=== PATIENT | female | born 1955 | race Caucasian/White ===

== ENCOUNTER 2017-02-12 21:13 | Emergency (ER) | payer OTHER ==
[~2017-02-12] VITALS: Ht 165.1 cm; Wt 113.4 kg
[~2017-02-12 21:13] MED LIST: ALLOPURINOL 30300 M2 PO; BAYER CHEWABLE81 MG PO; BRILINTA90 MG PO; CALCIUM500 MG PO; CARDIZEM CD240 MG PO; CO Q-1010 MG PO; FISH OIL 1,001000 M2 PO; LEVOTHYROXIN0.075 MG PO; LEVOTHYROXIN0.088 MG PO; LIPITOR 20 MG T20 M1 PO; LOPRESSOR25 PO; MICARDIS 80 MG80 MG PO; NEXIUM40 MG PO; NITROGLYCERIN0.4 MG SUBLING; UNICOMPLEX M TA1 TA1 PO; UROCIT-K10 ME1 PO; VITAMIN D1000 UNI1 PO
[2017-02-12 21:50] LABS: ABSOLUTE NEUTROPHILS 7.4 thou/uL (1.4-8.2); BASOPHILS 1.3 % (0.0-2.0); EOSINOPHILS 2.2 % (0.0-3.0); HEMATOCRIT 42.4 % (37.0-47.0); HEMOGLOBIN 13.9 gm/dL (12.0-15.0); LYMPHOCYTES 26.8 % (24.0-44.0); MCH 28.5 pg (26.0-34.0); MCHC 32.7 g/dL (28.0-37.0); MCV 87.1 fL (80.0-100.0); MONOCYTES 6.3 % (1.0-8.0); PLATELET COUNT 323 thou/uL (150-400); POLYS 63.4 % (36.0-66.0); RBC 4.87 mil/uL (4.20-5.00); RDW 14.3 % (10.5-14.5); WBC 11.7 thou/uL (4.0-11.0)
[2017-02-12] MEDS ORDERED: SYNTHROID100 MCG PO (21:50)
[2017-02-12] MEDS ORDERED: LOVASTATIN 20 M20 MG PO (21:51)
[2017-02-12 21:52] LABS: URINE BILIRUBIN NEGATIVE (Negative); URINE BLOOD 3+ (Negative); URINE COLOR YELLOW; URINE GLUCOSE-RANDOM* NEGATIVE (Negative); URINE KETONES NEGATIVE (Negative); URINE NITRITE NEGATIVE (Negative); URINE PROTEIN (DIPSTICK) TRACE (Negative); URINE SPECIFIC GRAVITY >= 1.030 (1.003-1.035)
[2017-02-12 22:01] LABS: CALCIUM 9.5 mg/dL (8.5-10.1)
[2017-02-12 22:04] LABS: BACTERIA 1-9 Few /HPF (None Seen); CASTS None Seen /LPF (None Seen); CRYSTALS None Seen /LPF (None Seen); SQUAMOUS >10 Many /LPF (0-3); URINE RBC 0-2 Rare /HPF (0-2); URINE WBC 0-5 Rare /HPF (0-5)
[2017-02-12 22:07] LABS: ALBUMIN 3.9 g/dL (3.4-5.0); TOTAL BILIRUBIN 0.4 mg/dL (<0.1-1.0); TOTAL PROTEIN 8.1 g/dL (6.4-8.2)
[2017-02-12 22:08] LABS: MANUAL DIFF NO
[2017-02-12] MEDS ORDERED: FLOMAX0.4 MG PO (22:56)
[2017-02-12] MEDS ORDERED: CIPRO500 MG PO (22:56)
[2017-02-12] MEDS ORDERED: NORCO 10-325 T1 EACH PO (22:56)
[2017-02-12] MEDS ORDERED: TORADOL 10 MG T10 MG PO (23:07)
[2017-02-12] MEDS ORDERED: PERCOCET PO (23:07)
== END 2017-02-12 23:05 | disposition home or self-care (01) ==
LOC: ER 21:13
PROVIDERS: Nurse Practitioner Family
DX: N20.1 Calculus of ureter (principal); K59.00 Constipation, unspecified; I10 Essential (primary) hypertension; Z88.1 Allergy status to other antibiotic agents; Z88.5 Allergy status to narcotic agent; Z88.0 Allergy status to penicillin; Z91.013 Allergy to seafood; Z88.2 Allergy status to sulfonamides; Z91.048 Other nonmedicinal substance allergy status

== ENCOUNTER → 2017-05-17 | Outpatient (CLI) | payer OTHER ==
[~2017-05-17] MED LIST changes: +CIPRO500 MG PO; +FLOMAX0.4 MG PO; +LOVASTATIN 20 M20 MG PO; +NORCO 10-325 T1 EACH PO; +PERCOCET PO; +SYNTHROID100 MCG PO; +TORADOL 10 MG T10 MG PO
== END ==
LOC: RAD 11:27
DX: Z12.31 Encounter for screening mammogram for malignant neoplasm of breast (principal)

== ENCOUNTER → 2019-03-02 | Outpatient (CLI) | payer OTHER | LOC: RAD 14:12 | DX: Z12.31 Encounter for screening mammogram for malignant neoplasm of breast (principal) ==

== ENCOUNTER → 2021-03-02 | Outpatient (CLI) | payer OTHER, MEDICARE | LOC: BC 02-17 13:41 | PROVIDERS: ATTEND Family Medicine | DX: Z12.31 Encounter for screening mammogram for malignant neoplasm of breast (principal) ==